=== PATIENT | female | born 1965 | race Two or more races ===

== ENCOUNTER 2017-09-20 23:55 | Emergency (ER) | payer SELFPAY ==
[~2017-09-20] VITALS: Ht 157.5 cm; Wt 64.9 kg
[~2017-09-20 23:55] MED LIST: AMOX500C25 PO
[2017-09-20 23:59] VITALS: BP 127/78
--- NOTE | 2017-09-21 00:23 | NUR ---
PT TAKEN TO BED 10
--- NOTE | 2017-09-21 00:25 | NUR ---
52/F c/o right ear pain, and headache x2 days. Pt also reports congestion and runny nose. Denies cough, denies SOB or chest pain. Denies any changes in vision. AOX4, clear speech, icelandic speaking. VSS. at bedside.
--- NOTE | 2017-09-21 00:40 | NUR ---
Patient being evaluated by Dr. Rodriguez at bedside.
[2017-09-21] MEDS ORDERED: KETOROLAC 30 MG/ML VIAL IM ONE (00:50)
[2017-09-21] MEDS ORDERED: HYDROcodone/APAP 5/325 MG 1 TAB TAB PO ONE (00:50)
--- NOTE | 2017-09-21 00:59 | NUR ---
Warm blanket provided. Lights dimmed in room. Pillow provided. Comfort needs met. at bedside. Pt placed in position of comfort. Will continue to monitor.
[2017-09-21 01:50] VITALS: BP 118/80
--- NOTE | 2017-09-21 01:50 | NUR ---
Patient discharged with v/s stable. Written and verbal after care instructions given and explained. Patient alert, oriented and verbalized understanding of instructions. Ambulatory with steady gait. All questions addressed prior to discharge. ID band removed. Patient advised to follow up with PMD. Rx of Naprosyn 500mg, [place] 5mg-325mg and Ofloxacin 0.3% otic solution given. Patient educated on indication of medication including possible reaction and side effects. Opportunity to ask questions provided and answered.
== END 2017-09-21 01:50 | disposition home or self-care (01) ==
LOC: MED 23:55
DX: H60.91 Unspecified otitis externa, right ear (principal); Z79.899 Other long term (current) drug therapy
CPT/HCPCS: 96372; 99283; J1885

== ENCOUNTER 2023-11-08 14:56 | Emergency (ER) | payer MEDICAID ==
[~2023-11-08] VITALS: Ht 154.9 cm; Wt 63.3 kg
[2023-11-08 15:33] VITALS: BP 140/75; PULSE 65; RESP 20; TEMP 98.3; O2SAT 100
[2023-11-08] MEDS ORDERED: KETOROLAC 30 MG/ML VIAL IVP ONE (15:40)
[2023-11-08] MEDS ORDERED: NACL 0.9% 1,000 ML IV ONE (15:40)
[2023-11-08 16:03] LABS: BASOPHILS % (AUTO) 0.4 % (0.0-2.0); EOSINOPHILS # (AUTO) 0.1 K/uL (0-0.4); EOSINOPHILS % (AUTO) 0.8 % (0.0-4.0); HEMATOCRIT 42.4 % (36-48); MEAN CORPUSCULAR HEMOGLOBIN 32 pg (27-31); MEAN CORPUSCULAR HGB CONC 35 g/dL (33-37); MEAN CORPUSCULAR VOLUME 89.7 fL (80-94); MONOCYTES # (AUTO) 0.7 K/uL (0.8-1.0); MONOCYTES % (AUTO) 9.3 % (1.7-9.3); NEUTROPHILS # (AUTO) 4.8 K/uL (1.8-7.7); NEUTROPHILS % (AUTO) 63.5 % (42.2-75.2); PLATELET COUNT (AUTO) 170 K/uL (140-450); RED BLOOD CELL COUNT(AUTO) 4.72 MIL/uL (4.20-5.40); RED CELL DISTRIBUTION WIDTH 13.8 % (11.6-13.7); WHITE BLOOD COUNT (AUTO) 7.5 K/uL (4.8-10.8)
[2023-11-08 16:16] LABS: ANION GAP 12.2 (8-16); CALCIUM 9.9 mg/dL (8.5-10.1); CARBON DIOXIDE 30.4 mmol/L (21-32); CREATININE 0.9 mg/dL (0.6-1.3); POTASSIUM 3.6 mmol/L (3.5-5.1)
[2023-11-08 16:25] LABS: LIPASE 30 U/L (16-77)
[2023-11-08 17:00] VITALS: O2SAT 100
[2023-11-08] MEDS ORDERED: LORazepam 2 MG/ML VIAL IVP ONE (17:10)
[2023-11-08 17:12] VITALS: BP 167/75; PULSE 65; RESP 20; TEMP 98.3; O2SAT 99
[2023-11-08] MEDS ORDERED: KETOROLAC 15 MG/ML VIAL ONE (17:31)
[2023-11-08 18:42] LABS: FLU A ANTIGEN negative (NEGATIVE); FLU B ANTIGEN NEGATIVE (NEGATIVE)
[2023-11-08] MEDS ORDERED: ONDA-188 PO (19:14)
[2023-11-08] MEDS ORDERED: ATA25 PO (19:14)
== END 2023-11-08 19:23 | disposition home or self-care (01) ==
LOC: MED 14:56
DX: R07.89 Other chest pain (principal); R55 Syncope and collapse; E11.9 Type 2 diabetes mellitus without complications; F41.9 Anxiety disorder, unspecified; I10 Essential (primary) hypertension; Z20.822 Contact with and (suspected) exposure to COVID-19; Z79.899 Other long term (current) drug therapy; Z79.2 Long term (current) use of antibiotics
CPT/HCPCS: 36415; 71045; 80048; 81025; 83690; 83880; 84484; 85025; 87426; 87804; 93005; 96361; 96374; 96375; 99285; J1885; J2060; J7030